=== PATIENT | female | born 1995 | race Caucasian/White ===

== ENCOUNTER 2023-04-29 09:00 | Emergency (ER) | payer OTHER ==
[~2023-04-29] VITALS: Ht 165.1 cm; Wt 90.7 kg
[2023-04-29 10:40] LABS: HEMATOCRIT 40.4 % (36.0-45.00); HEMOGLOBIN 13.3 g/dL (12.0-15.00); MEAN CELL VOLUME 82.8 fL (80.00-100.00); MEAN CORPUSCULAR HEMOGLOBIN 27.1 pg (27.00-32.0); MEAN CORPUSCULAR HGB CONC 32.8 g/dl (32.0-36.0); PLATELET COUNT 383 K/uL (150-450); RED BLOOD COUNT 4.88 M/uL (4.00-6.00); RED CELL DISTRIBUTION WIDTH 14.2 % (11.5-14.5)
[2023-04-29 11:13] LABS: CALCIUM 8.8 mg/dL (8.5-10.1); CREATININE SERUM 0.92 mg/dL (0.55-1.02); GFR 71.68; POTASSIUM 4.39 mEq/L (3.5-5.1)
[2023-04-29 12:34] LABS: PH,URINE 5.5 (5.0-8.0); URINE APPEARANCE Turbid; URINE BILIRRUBIN Negative (NEGATIVE); URINE BLOOD Negative; URINE COLOR Yellow; URINE GLUCOSE Negative (NEGATIVE); URINE LEUKOCYTE Negative; URINE NITRATE Negative; URINE PROTEIN Negative (NEGATIVE); URINE UROBILINOGEN 0.2 E.U./dl
[2023-04-29 12:37] LABS: URINE EPITHELIAL CELLS 23.9 uL (0.0-38.8); URINE RBC 25.7 uL (0.0-20.8); URINE WBC 12.2 uL (0.0-23.2)
[2023-04-29] MEDS ORDERED: PEPCID AC20 MG PO (13:22)
[2023-04-29] MEDS ORDERED: ZOFRAN8 MG PO (13:22)
[2023-04-29] MEDS ORDERED: INTESTINEX680 M1 PO (13:22)
== END 2023-04-29 14:58 | disposition home or self-care (01) ==
LOC: ER 09:00
PROVIDERS: General Practice
DX: K52.89 Other specified noninfective gastroenteritis and colitis (principal)